=== PATIENT | female | born 1945 | race Caucasian/White ===

== ENCOUNTER 2017-09-12 20:14 | Inpatient (IN) | payer OTHER ==
[~2017-09-12] VITALS: Ht 160 cm; Wt 57.3 kg
[2017-09-12 21:40] VITALS: BP 188/78; PULSE 85; TEMP 36.7; O2SAT 98; BMI 22.8
[2017-09-12 21:45] VITALS: O2SAT 98
[2017-09-12] MEDS ORDERED: NITROGLYCERIN 0.4 MG SL PER TAB CHARGE SL PRN (22:15)
[2017-09-12] MEDS ORDERED: ONDANSETRON INJ 2 MG/ML 2 ML VIAL IV PRN (22:15)
[2017-09-12] MEDS ORDERED: MAGNESIUM HYDROXIDE SUSP 30 ML UDC PO PRN (22:15)
[2017-09-12] MEDS ORDERED: ACETAMINOPHEN 325 MG TAB PO PRN (22:15)
[2017-09-12] MEDS ORDERED: POLYETHYLENE (MIRALAX) 17 GM PACK PO PRN (22:15)
[2017-09-12] MEDS ORDERED: PHARMACIST DISCHARGE MED REC CONSULT PRN (22:15)
[2017-09-12] MEDS ORDERED: METOPROLOL TARTRATE 1 MG/ML VIAL IV PRN (22:30)
[2017-09-12] MEDS ORDERED: HydrALAZINE HCL 20 MG/ML VIAL IV. PRN (22:30)
[2017-09-12 22:35] VITALS: BP 147/74
[2017-09-12] MEDS ORDERED: CARBOHYDRATES FOR HYPOGLYCEMIA PO PRN (22:45)
[2017-09-12] MEDS ORDERED: GLUCOSE 40% GEL 15 GM TUBE PO PRN (22:45)
[2017-09-12] MEDS ORDERED: DEXTROSE 50% 50 ML SYR IV PRN (22:45)
[2017-09-12] MEDS ORDERED: GLUCAGON FOR INJ 1 MG VIAL IM PRN (22:45)
[2017-09-12] MEDS ORDERED: GLUCOSE 10 TABS/TUBE PO PRN (22:45)
[2017-09-12 22:48] LABS: BASO % 0.5 %; BASO ABS # 0.04 K/uL (0-0.2); EOS % 2.3 %; EOS ABS # 0.18 K/uL (0-0.5); HEMATOCRIT 43.6 % (37-47); HEMOGLOBIN 14.9 g/dL (12.0-16.0); IG# 0.03 K/uL (0.00-0.02); LYMPH % 42.8 %; LYMPH ABS # 3.31 K/uL (1.2-3.4); MEAN CELL VOLUME 88.1 fL (80-100); MEAN CORPUSCULAR HEMOGLOBIN 30.1 pg (25-34); MEAN CORPUSCULAR HGB CONC 34.2 g/dl (32-36); MEAN PLATELET VOLUME 9.8 fL (7.4-10.4); MONO % 7.1 %; MONO ABS # 0.55 K/uL (0.11-0.59); NEUT % 46.9 %; NEUT ABS # 3.62 K/uL (1.4-6.5); PLATELET COUNT 179 K/uL (130-400); RED CELL DISTRIBUTION WIDTH CV 12.9 % (11.5-14.5); RED CELL DISTRIBUTION WIDTH SD 41.2 fL (36.4-46.3); WHITE BLOOD COUNT 7.73 K/uL (4.8-10.8)
--- NOTE | 2017-09-12 23:00 | History and Physical ---
History & Physical Date & Time of Service: Sep 12, 2017 at 22:34 Chief Complaint: Right Sided Cva Primary Care Physician: No Doctor, Assigned History of Present Illness Source: patient The patient is a 72 year old female with a history of Diabetes, Hypertension, and Hyperlipidemia that presents as a direct admission from [facility] with a suspected stroke. The patient reports having facial numbness prior to going to sleep yesterday evening. She woke up this morning with left sided facial droop and tingling over her face and entire body, primarily in her extremities. The patient was taken to [facility] and CTA Head revealed decreased attenuation in the right occipital lobe. MRI brain subsequently showed acute ischemia in the medial aspect of the right occipital lobe extending into the thalamus. The patient was given Aspirin and transferred to [facility]. The patient at this time states her facial droop and numbness have improved, but she is still having difficulty walking. She is having continued numbness mainly on her left side that is different than early this morning when is was bilateral. She is also complaining of blurry vision. She had a left eye cataract surgery 3 weeks ago and has surgery for her right eye scheduled, but states this blurriness is different from her previous vision issues. The patient denies having slurred speech, memory problems, headache, difficulties breathing, palpitations, chest pain, or other acute complaints at this time. Past Medical/Surgical History Medical Problems: (1) CVA (cerebral vascular accident) Family History Diabetes mellitus MOTHER Hypertension FATHER MOTHER Stroke FATHER, Onset:50's - 60 Social History Smoking Status: Never Smoker Smokeless Tobacco Use: No Alcohol Use: socially Drug Use: none Marital Status: single Housing status: lives alone Allergies Coded Allergies: NSAIDs (Verified Allergy, Mild, RASH, 09/12/17) Review of Systems Constitutional: No fever, No chills, No fatigue Respiratory: No cough, No sputum, No shortness of breath, No dyspnea on exertion Cardiovascular: No chest pain, No edema, No palpitations Abdomen: + diarrhea, No pain, No nausea, No vomiting, No constipation Genitourinary - Female: No dysuria, No urinary frequency, No urinary urgency Neurologic: + weakness, + numbness/tingling, + balance problems, No memory loss Psychiatric: No depression symptoms, No anxiety Integumentary: No rash Physical Exam Vital Signs Date Time Temp Pulse Resp B/P (MAP) Pulse Ox O2 Delivery O2 Flow Rate FiO2 09/12/17 21:45 98 Room Air 09/12/17 21:40 36.7 85 20 188/78 98 Room Air General Appearance: WD/WN, no apparent distress Head: normocephalic, atraumatic Eyes: normal inspection, PERRL, EOMI, sclerae normal ENT: normal ENT inspection, TMs normal, pharynx normal Neck: supple, no carotid bruits Respiratory/Chest: chest non-tender, lungs clear, normal breath sounds Cardiovascular: regular rate, rhythm, no edema, no gallop Abdomen/GI: normal bowel sounds, non tender, soft Back: normal inspection, no CVA tenderness Extremities/Musculoskelatal: no calf tenderness, no pedal edema Neurologic/Psych: alert, normal mood/affect, oriented x 3, + abnormal camp tender II- XII (Very mild left sidede facial droop), + pertinent finding (Left hand overshooting on [id number] testing. Able to perform nhzk-zm-[id number] testing bilaterally but appears to have mild decrease of strength and co-ordination in the left leg. No visible deficit with arm raising in flexed position for 30s.) Diagnostics Laboratory Results Results Past 24 Hours Test 09/12/17 22:26 Range/Units Impression Assessment and Plan The patient is a 72 year old female with a history of Diabetes, Hypertension, and Hyperlipidemia that presents as a direct admission from [facility] with a suspected stroke CVA - CTA Head: Decreased attenuation in the right occipital lobe - MRI brain: Acute ischemia in the medial aspect of the right occipital lobe extending into the thalamus - CTA Head and Neck Ordered - Echo Ordered - Neurology Consult - Labs: CBC, BMP, HbA1c, Lipid Panel - Aspirin - Bedside Swallow Eval - PT/OT - Neuro checks q4h - Admit Telemetry Diabetes - BSH AC/HS with SSI Coverage - Hold Metformin and Invokana HTN - Resume home Lisinopril 20mg PO QAM - PRN Hydralazine and Lopressor IV for SBP > 180 (Goal overnight 160s-170s) DVT - SCDs Code Status - Full Resuscitation Attending addendum: I have physically seen this patient, have supervised the medical residents activities, and agree with the H&P unless as otherwise noted. Assessment and Plan: Right occipital/thalamic CVA-- Abnormal CT of head and MRI of brain performed at [facility]. The patient will be admitted to telemetry for serial cardiac enzymes, serial EKG's, cardiac rhythm monitoring and a 2-D echocardiogram with Dopplers. Aspirin 81 mg p.o. every morning. Order CTA of head neck. Inpatient stroke without TPA protocol. Consult PT/OT/speech therapy/social worker/neurology. Neurochecks every 4 hours per protocol. Blood pressure goals as noted. Check hemoglobin A1c and fasting lipid panel. Begin empiric atorvastatin 40 mg daily. Diabetes mellitus-- Hold metformin and Invokana. Place on Accu-Cheks before meals and at bedtime with NovoLog coverage for scale. Advanced Directives Existing Advance Directive: No Existing Living Will: No Existing Power of Superintendent Recreation: No Resuscitation Status VTE Prophylaxis Will order VTE Prophylaxis: Yes Resident Tracking Resident Involvement: Resident Care Provided Care Provided: Adult Hospital Medicine
[2017-09-12 23:05] LABS: CALCIUM 9.4 mg/dl (8.5-10.1); CREATININE 0.62 mg/dl (0.60-1.20); POTASSIUM 4.4 mmol/L (3.5-5.1)
[2017-09-12 23:45] VITALS: BP 155/75; PULSE 81; TEMP 36.8; O2SAT 97
[2017-09-13] MEDS ORDERED: GADAVIST IV PRN (00:30)
[2017-09-13 03:45] VITALS: BP 149/69; PULSE 73; TEMP 36.8; O2SAT 98
--- NOTE | 2017-09-13 07:21 | DIAGNOSTIC IMAGING REPORT ---
MRA NECK COMBO CLINICAL HISTORY: 72 years-old Female with Stroke. Acute strokelike symptoms with dizziness COMPARISON STUDY: MRA head of same day, MRI brain 09/12/2017. TECHNIQUE: Axial 3-D [id number] MR angiography of the neck is performed. Subsequently, following the IV administration of 5.8 mL Gadavist coronal MR angiogram of the neck was performed to corroborate the findings. 3-D reformats are created and assessed. All measurements were calculated based on NASCET criteria. FINDINGS: Normal three-vessel aortic arch. The innominate and imaged subclavian arteries appear patent. Bilateral common carotid arteries are widely patent. 40% luminal narrowing at the origin of the left internal carotid artery, likely secondary to underlying atherosclerotic vascular disease. The imaged bilateral internal carotid arteries are otherwise widely patent. The right vertebral artery is dominant. The bilateral vertebral arteries are widely patent. There is no aneurysm, dissection, high-grade stenosis or proximal branch occlusion. Incidental note is made of mildly heterogeneous appearance of the thyroid. IMPRESSION: 1. No aneurysm, dissection, high-grade stenosis or proximal branch occlusion identified. 2. 40% luminal narrowing at the origin of the right internal carotid artery is likely secondary to underlying atherosclerotic vascular disease. The above report was generated using voice recognition software. It may contain grammatical, syntax or spelling errors. Electronically signed by: Jhonatan Gannon M.D. 09/13/2017 7:20 AM Dictated Date/Time: 09/13/2017 7:10 AM
[2017-09-13 07:34] LABS: BASO % 0.5 %; BASO ABS # 0.04 K/uL (0-0.2); EOS % 3.2 %; EOS ABS # 0.24 K/uL (0-0.5); HEMATOCRIT 42.8 % (37-47); HEMOGLOBIN 14.9 g/dL (12.0-16.0); IG# 0.01 K/uL (0.00-0.02); LYMPH % 30.9 %; LYMPH ABS # 2.32 K/uL (1.2-3.4); MEAN CELL VOLUME 87.9 fL (80-100); MEAN CORPUSCULAR HEMOGLOBIN 30.6 pg (25-34); MEAN CORPUSCULAR HGB CONC 34.8 g/dl (32-36); MEAN PLATELET VOLUME 10.3 fL (7.4-10.4); MONO % 9.7 %; MONO ABS # 0.73 K/uL (0.11-0.59); NEUT % 55.6 %; NEUT ABS # 4.16 K/uL (1.4-6.5); PLATELET COUNT 179 K/uL (130-400); RED CELL DISTRIBUTION WIDTH SD 41.6 fL (36.4-46.3)
--- NOTE | 2017-09-13 07:36 | DIAGNOSTIC IMAGING REPORT ---
MR ANGIOGRAM OF THE BRAIN CLINICAL HISTORY: Right occipital and basal ganglia stroke. COMPARISON STUDY: CT of the brain dated 09/12/2017. MRI of the brain dated 09/12/2017.. TECHNIQUE: 3-D [id number] MR angiography of the intracranial circulation is performed. 3-D tumble views are created and assessed. IV contrast was not administered for this examination. FINDINGS: There is origin of the right posterior cerebral artery. The internal carotid arteries are widely patent bilaterally, as are the anterior and middle cerebral arteries. The vertebrobasilar system and left posterior cerebral artery are widely patent. There is complete occlusion of the right posterior cerebral artery proximally as seen on axial image #110. The right vertebral artery is dominant. There is no aneurysm or high-grade stenosis identified. IMPRESSION: 1. There is occlusion of the right posterior cerebral artery. 2. The remaining intracranial vessels are patent. 3. No aneurysm is identified. Electronically signed by: Von Layne M.D. 09/13/2017 7:35 AM Dictated Date/Time: 09/13/2017 7:03 AM
--- NOTE | 2017-09-13 07:52 | Family Medicine Progress Note ---
Progress Note Date of Service Sep 13, 2017. Medications Current Inpatient Medications Medications (Trade) Dose Ordered Sig/Vinny Route Start Time Stop Time Status Last Admin Dose Admin Atorvastatin Calcium (Lipitor Tab) 40 mg QAM PO 09/13/17 09:00 10/13/17 08:59 Aspirin (Ecotrin Tab) 81 mg QAM PO 09/13/17 09:00 10/13/17 08:59 Miscellaneous Information (Pharmacist Discharge Med Rec Consult) 1 ea UD PRN N/A 09/12/17 22:15 10/12/17 22:14 Acetaminophen (Tylenol Tab) 650 mg Q4H PRN PO 09/12/17 22:15 10/12/17 22:14 Magnesium Hydroxide (Milk Of Magnesia Susp) 30 ml Q12H PRN PO 09/12/17 22:15 10/12/17 22:14 Ondansetron HCl (Zofran Inj) 4 mg Q6H PRN IV 09/12/17 22:15 10/12/17 22:14 Nitroglycerin (Nitrostat Tab) 0.4 mg UD PRN SL 09/12/17 22:15 10/12/17 22:14 Polyethylene (Miralax Powder Packet) 17 gm DAILY PRN PO 09/12/17 22:15 10/12/17 22:14 Insulin Aspart (novoLOG ASPART) SLIDING SCALE G... ACHS SC 09/13/17 07:00 10/13/17 06:59 Lisinopril (Zestril Tab) 10 mg QAM PO 09/13/17 09:00 10/13/17 08:59 Metoprolol Tartrate (Lopressor Iv) 5 mg Q6 PRN IV 09/12/17 22:30 10/12/17 22:29 Glucose (Glucose 40% Gel) 15-30 GRAMS 15 GRAMS... UD PRN PO 09/12/17 22:45 10/12/17 22:44 Glucose (Glucose Chew Tab) 4-8 Tablets 4 Tabl... UD PRN PO 09/12/17 22:45 10/12/17 22:44 Dextrose (Dextrose 50% 50ML Syringe) 25-50ML 25ML FOR ... UD PRN IV 09/12/17 22:45 10/12/17 22:44 Glucagon (Glucagon Inj) 1 mg UD PRN IM 7/11/18 22:45 10/12/17 22:44 Carbohydrates (Carbohydrates For Hypoglycemia) 15-30 GRAMS 15 grams if BSG 54-69... UD PRN PO 09/12/17 22:45 10/12/17 22:44 Gadobutrol (Gadavist) 5.8 mmol UD PRN IV 09/13/17 00:30 09/17/17 00:29 Objective Vital Signs Date Time Temp Pulse Resp B/P (MAP) Pulse Ox O2 Delivery O2 Flow Rate FiO2 09/13/17 03:45 36.8 73 18 149/69 (95) 98 Room Air 09/12/17 23:59 Room Air 09/12/17 23:45 36.8 81 20 155/75 (101) 97 Room Air 09/12/17 22:35 147/74 (98) 09/12/17 21:45 98 Room Air 09/12/17 21:40 36.7 85 20 188/78 98 Room Air Assessment and Plan Resident Physician Supervision Note: I interviewed and examined the patient. Discussed with Dr. Hurley and agree with findings and plan as documented in the note. Any exceptions or clarifications are listed here: None Documented By: Semaj Felipe still feels dizzy diet reviewed - sounds to drink at least 2 regular pepsi a day, also eats a fair amount of processed carbs as part of her regular diet. 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
[2017-09-13 08:12] VITALS: BP 166/76; PULSE 83; TEMP 36.9; O2SAT 95
[2017-09-13 08:20] LABS: CALCIUM 9.5 mg/dl (8.5-10.1); CREATININE 0.66 mg/dl (0.60-1.20); POTASSIUM 4.1 mmol/L (3.5-5.1)
--- NOTE | 2017-09-13 08:22 | Clinical Documentation Query ---
KATIE Kang : CLINICAL DOCUMENTATION QUERY Patient is a 72 year old female admitted for evaluation and treatment of right occipital/thalamic CVA. Noted mild left sided facial droop, left hand apraxia, left leg weakness and decreased coordination. As appropriate, consider capture of this conglomerate of CVA related symptoms as suggested below. In your clinical opinion is this patient being managed for: ( X ) Left hemiparesis secondary to right occipital/thalamic CVA ( ) Not Agree ( ) Other explanation of clinical findings (No explanation is considered a No Response) ( ) Unable to determine ( ) Need to Discuss (Phone CDS or qliq) (No discussion is considered a No Response) The medical record reflects the following clinical findings, treatment, and risk factors. Clinical Indicators: As above Treatment: CTA Head, MRI Brain, Echocardiogram, Neurology consult, ASA, bedside swallow evaluation, PT/OT, neuro checks, telemetry Risk Factors: Age, diabetes, hypertension, hyperlipidemia Please clarify and document your clinical opinion in the progress notes and discharge summary. Terms such as "probable", "suspected", "likely", "questionable", "possible", or "still to be ruled out" are acceptable. IF IN AGREEMENT, YOU MUST DOCUMENT ABOVE DIAGNOSTIC STATEMENT IN DAILY PROGRESS NOTES AND DISCHARGE SUMMARY. This document is not part of the patient's record. Thank You, Kade Henley RN [phone]
[2017-09-13] MEDS ORDERED: ATORVASTATIN 40 MG TAB PO SCH (09:00)
[2017-09-13] MEDS: LISINOPRIL 10 MG TAB PO SCH (09:05)
[2017-09-13] MEDS: ASPIRIN 81 MG ECTAB PO SCH (09:05)
--- NOTE | 2017-09-13 09:05 | ECHOCARDIOGRAM REPORT ---
*NOTICE TO RECEIVING LIBERTARIAN AGENCY This information is strictly Confidential and protected under [place] law. [place] law prohibits you from making any further disclosure of this information unless further disclosure is expressly permitted by the written consent of the person to whom it pertains or is authorized by law. A general authorization for the release of medical or other information is not sufficient for this purpose. Hospital accepts no responsibility if the information is made available to any other person, INCLUDING THE PATIENT. Interpretation Summary * Name: WILL DAMIAN Study Date: 09/13/2017 06:40 AM BP: 149/69 mmHg * Patient Location: C.2T\S\S240\S\2 HR: 73 * : 1945 (M/d/yyy) Gender: Female Height: 63 in * Age: 72 yrs Ethnicity: DC Weight: 129 lb * Ordering Physician: Fermin Khan * Performed By: Saira Bruno RDCS * * Reason For Study: CVA * BSA: 1.6 m2 * -- Conclusions -- * Left ventricular systolic function is normal. * Grade I diastolic dysfunction, (abnormal relaxation pattern). * Injection of contrast documented no interatrial shunt. Procedure Details * A complete two-dimensional transthoracic echocardiogram was performed (2D, M-mode, Doppler and color flow Doppler). * A saline contrast injection was performed to assess for cardiac shunting. * The injection was performed through an intravenous line in the right arm. * The attending nurse who injected the saline contrast was LUCIEN MERLOS RN. * A total of 20 cc of agitated saline was given. Left Ventricle * The left ventricle is normal in size. * There is normal left ventricular wall thickness. * Ejection Fraction = 65-70%. * Left ventricular systolic function is normal. * Grade I diastolic dysfunction, (abnormal relaxation pattern). * The left ventricular wall motion is normal. Right Ventricle * The right ventricle is normal in size and function. * The right ventricular systolic function is normal as assessed by tricuspid annular plane systolic excursion (TAPSE) (normal >1.5 cm). Atria * The left atrial size is normal. * Right atrial size is normal. * Injection of contrast documented no interatrial shunt. Mitral Valve * The mitral valve anatomy is normal. * Significant mitral regurgitation is absent. Tricuspid Valve * The tricuspid valve is not well visualized, but is grossly normal. * Significant tricuspid regurgitation is absent. Aortic Valve * The aortic valve is normal in structure and function. * No hemodynamically significant valvular aortic stenosis. * There is no significant aortic regurgitation. Pulmonic Valve * The pulmonic valve is not well visualized. Pericardium/Pleural * There is no pericardial effusion. Great Vessels * Normal inferior vena cava diameter and respiratory variation suggests normal central venous pressure. MMode 2D Measurements and Calculations IVSd 1.5 cm IVSs 2.1 cm LVIDd 4.3 cm LVIDs 2.7 cm LVPWd 1.1 cm LVPWs 1.8 cm IVS/LVPW 1.4 FS 37.6 % EDV(Teich) 82.7 ml ESV(Teich) 26.4 ml EF(Teich) 68.0 % EDV(cubed) 79.1 ml ESV(cubed) 19.2 ml EF(cubed) 75.8 % % IVS thick 35.8 % % LVPW thick 68.2 % LV mass(C)d 210.5 grams LV mass(C)dI 131.1 grams/m\S\2 LV mass(C)s 223.4 grams LV mass(C)sI 139.2 grams/m\S\2 CO(Teich) 4.7 l/min CI(Teich) 2.9 l/min/m\S\2 SV(Teich) 56.3 ml SI(Teich) 35.1 ml/m\S\2 CO(cubed) 5.0 l/min CI(cubed) 3.1 l/min/m\S\2 SV(cubed) 59.9 ml SI(cubed) 37.3 ml/m\S\2 ACS 1.3 cm LA dimension 3.4 cm asc Aorta Diam 3.3 cm LVOT diam 1.7 cm LVOT area 2.3 cm\S\2 LVAd ap4 21.6 cm\S\2 LVLd ap4 6.2 cm EDV(MOD-sp4) 63.4 ml LVAs ap4 10.5 cm\S\2 LVLs ap4 5.0 cm ESV(MOD-sp4) 19.3 ml EF(MOD-sp4) 69.6 % LVAd ap2 19.0 cm\S\2 LVLd ap2 5.8 cm EDV(MOD-sp2) 53.5 ml LVAs ap2 9.2 cm\S\2 LVLs ap2 4.6 cm ESV(MOD-sp2) 16.8 ml EF(MOD-sp2) 68.6 % CO(MOD-sp4) 3.7 l/min CI(MOD-sp4) 2.3 l/min/m\S\2 SV(MOD-sp4) 44.1 ml SI(MOD-sp4) 27.5 ml/m\S\2 CO(MOD-sp2) 3.1 l/min CI(MOD-sp2) 1.9 l/min/m\S\2 SV(MOD-sp2) 36.7 ml SI(MOD-sp2) 22.9 ml/m\S\2 Doppler Measurements and Calculations MV E max daisha 83.4 cm/sec MV A max daisha 120.8 cm/sec MV E/A 0.69 MV dec time 0.23 sec Ao V2 max 142.5 cm/sec Ao max PG 8.1 mmHg Ao max PG (full) 4.6 mmHg TEODORO(V,A) 1.5 cm\S\2 TEODORO(V,D) 1.5 cm\S\2 LV V1 max PG 3.5 mmHg LV V1 max 94.1 cm/sec PA V2 max 79.5 cm/sec PA max PG 2.5 mmHg
[2017-09-13] MEDS: INSULIN ASPART 100 UNITS/ML 3 ML PEN SC SCH ×4 (09:12→22:00)
--- NOTE | 2017-09-13 10:14 | Neurology Consultation ---
Neurology Consultation Date of Consultation: Sep 13, 2017. Attending Physician: Semaj Felipe D.O. Primary Care Physician: Denilson Soto M.D. Reason for Consultation: Stroke History of Present Illness Source: patient, hospital records The patient is a 72-year-old female who was transferred from [facility] for further evaluation and management of stroke. She complains of vision loss, off to the left, which began 2 days ago. She also complains of associated numbness and tingling affecting the entire left side of her body. The symptoms have not significantly changed since their onset. She denies associated headache or vertigo. She does report a vague feeling of weakness affecting the left arm and leg as well. A CT of the head completed at [facility] suggested a right occipital stroke which was confirmed with a follow-up brain MRI. There is also evidence of an ischemic infarct within the right thalamus. The patient was given aspirin and subsequently transferred to [facility] in the [facility] for further evaluation and management. The patient continues to complain of left-sided numbness and difficulty seeing off to the left hand side. As above, his symptoms have not really changed. Past medical history is notable for diabetes mellitus, hypertension, and hyperlipidemia. Family History Family history notable for diabetes mellitus, hypertension, and stroke Social History Smokeless Tobacco Use: No Alcohol Use: socially Drug Use: none Marital Status: single Allergies Coded Allergies: NSAIDs (Verified Allergy, Mild, RASH, 09/12/17) Current Inpatient Medications Current Inpatient Medications Medications (Trade) Dose Ordered Sig/Vinny Route Start Time Stop Time Status Last Admin Dose Admin Atorvastatin Calcium (Lipitor Tab) 40 mg QAM PO 09/13/17 09:00 10/13/17 08:59 09/13/17 09:05 40 MG Aspirin (Ecotrin Tab) 81 mg QAM PO 09/13/17 09:00 10/13/17 08:59 09/13/17 09:05 81 MG Miscellaneous Information (Pharmacist Discharge Med Rec Consult) 1 ea UD PRN N/A 09/12/17 22:15 10/12/17 22:14 Acetaminophen (Tylenol Tab) 650 mg Q4H PRN PO 09/12/17 22:15 10/12/17 22:14 Magnesium Hydroxide (Milk Of Magnesia Susp) 30 ml Q12H PRN PO 09/12/17 22:15 10/12/17 22:14 Ondansetron HCl (Zofran Inj) 4 mg Q6H PRN IV 09/12/17 22:15 10/12/17 22:14 Nitroglycerin (Nitrostat Tab) 0.4 mg UD PRN SL 09/12/17 22:15 10/12/17 22:14 Polyethylene (Miralax Powder Packet) 17 gm DAILY PRN PO 09/12/17 22:15 10/12/17 22:14 Insulin Aspart (novoLOG ASPART) SLIDING SCALE G... ACHS SC 09/13/17 07:00 10/13/17 06:59 09/13/17 09:12 6 UNITS Lisinopril (Zestril Tab) 10 mg QAM PO 09/13/17 09:00 10/13/17 08:59 09/13/17 09:05 10 MG Metoprolol Tartrate (Lopressor Iv) 5 mg Q6 PRN IV 09/12/17 22:30 10/12/17 22:29 Glucose (Glucose 40% Gel) 15-30 GRAMS 15 GRAMS... UD PRN PO 09/12/17 22:45 10/12/17 22:44 Glucose (Glucose Chew Tab) 4-8 Tablets 4 Tabl... UD PRN PO 09/12/17 22:45 10/12/17 22:44 Dextrose (Dextrose 50% 50ML Syringe) 25-50ML 25ML FOR ... UD PRN IV 09/12/17 22:45 10/12/17 22:44 Glucagon (Glucagon Inj) 1 mg UD PRN IM 09/12/17 22:45 10/12/17 22:44 Carbohydrates (Carbohydrates For Hypoglycemia) 15-30 GRAMS 15 grams if BSG 54-69... UD PRN PO 09/12/17 22:45 10/12/17 22:44 Gadobutrol (Gadavist) 5.8 mmol UD PRN IV 09/13/17 00:30 09/17/17 00:29 Review of Systems Constitutional: No fever chills Eyes: As per history of present illness, patient also reports history of cataracts ENT: No vertigo or hearing loss Cardiovascular: No chest pain or palpitations Respiratory: No cough or shortness of breath Neurological as per history of present illness Psychiatric: No depression or anxiety Hematologic: No abnormal bruising bleeding or swollen glands A full 10 point review of systems was obtained from this patient with pertinent positives and negatives described in history of present illness and otherwise listed above. All remaining systems were reviewed and are negative. Physical Exam Vital Signs (Past 24 Hrs): Date Time Temp Pulse Resp B/P (MAP) Pulse Ox O2 Delivery O2 Flow Rate FiO2 09/13/17 08:12 36.9 83 19 166/76 (106) 95 Room Air 09/13/17 08:00 Room Air 09/13/17 03:45 36.8 73 18 149/69 (95) 98 Room Air 09/12/17 23:59 Room Air 09/12/17 23:45 36.8 81 20 155/75 (101) 97 Room Air 09/12/17 22:35 147/74 (98) 09/12/17 21:45 98 Room Air 09/12/17 21:40 36.7 85 20 188/78 98 Room Air The patient is a well-developed, well-nourished elderly female. She is lying comfortably in bed. Recent and remote memory intact. Attention and concentration normal. Patient exhibits a normal spontaneous speech pattern and age-appropriate fund of knowledge. There is a left-sided visual field deficit, homonymous hemianopsia, with confrontation testing. Visual acuity normal. Pupils equal round react to light and accommodation. Eye movements normal. Facial sensation intact. There is no facial weakness or droop. Hearing intact. Palate elevates to midline. Shoulder shrug intact. Tongue protrudes to midline. There is a relative deficit to all sensory modalities affecting the left side of the body. Deep tendon reflexes are intact and symmetrical. Plantar responses equivocal for the left, downgoing for the right. There is mild dysmetria of [id number] and heel to schulz on the left. No dysmetria with argzqs-[id number] or heel to schulz on the right. Ophthalmoscopic examination reveals normal-appearing optic discs and posterior segments. No papilledema or hemorrhages. Carotid pulses normal bilaterally, no bruits to auscultation. Gait and station not tested due to safety concerns. Muscle strength seems grossly normal for all 4 limbs. Muscle tone normal throughout. No atrophy. No abnormal movements observed. Laboratory Results Past 24 Hours: 09/13/17 07:01 Red Blood Count 4.87, Mean Corpuscular Volume 87.9, Mean Corpuscular Hemoglobin 30.6, Mean Corpuscular Hemoglobin Concent 34.8, Mean Platelet Volume 10.3, Neutrophils (%) (Auto) 55.6, Lymphocytes (%) (Auto) 30.9, Monocytes (%) (Auto) 9.7, Eosinophils (%) (Auto) 3.2, Basophils (%) (Auto) 0.5, Neutrophils # (Auto) 4.16, Lymphocytes # (Auto) 2.32, Monocytes # (Auto) 0.73, Eosinophils # (Auto) 0.24, Basophils # (Auto) 0.04 09/13/17 07:01 Test 09/12/17 22:26 09/13/17 07:01 09/13/17 07:06 Estimated Average Glucose 240 mg/dl Hemoglobin A1c 10.0 % (4.5-5.6) White Blood Count 7.50 K/uL (4.8-10.8) Red Blood Count 4.87 M/uL (4.2-5.4) Hemoglobin 14.9 g/dL (12.0-16.0) Hematocrit 42.8 % (37-47) Mean Corpuscular Volume 87.9 fL (80-100) Mean Corpuscular Hemoglobin 30.6 pg (25-34) Mean Corpuscular Hemoglobin Concent 34.8 g/dl (32-36) Platelet Count 179 K/uL (130-400) Mean Platelet Volume 10.3 fL (7.4-10.4) Neutrophils (%) (Auto) 55.6 % Lymphocytes (%) (Auto) 30.9 % Monocytes (%) (Auto) 9.7 % Eosinophils (%) (Auto) 3.2 % Basophils (%) (Auto) 0.5 % Neutrophils # (Auto) 4.16 K/uL (1.4-6.5) Lymphocytes # (Auto) 2.32 K/uL (1.2-3.4) Monocytes # (Auto) 0.73 K/uL (0.11-0.59) Eosinophils # (Auto) 0.24 K/uL (0-0.5) Basophils # (Auto) 0.04 K/uL (0-0.2) RDW Standard Deviation 41.6 fL (36.4-46.3) RDW Coefficient of Variation 13.0 % (11.5-14.5) Immature Granulocyte % (Auto) 0.1 % Immature Granulocyte # (Auto) 0.01 K/uL (0.00-0.02) Anion Gap 6.0 mmol/L (3-11) Est Creatinine Clear Calc Drug Dose 65.6 ml/min Estimated GFR () 103.7 Estimated GFR (Non- 89.5 BUN/Creatinine Ratio 14.2 (10-20) Calcium Level 9.5 mg/dl (8.5-10.1) Triglycerides Level 153 mg/dl (0-150) Cholesterol Level 201 mg/dl (0-200) HDL Cholesterol 43 mg/dl LDL Cholesterol, Calculated 127 mg/dl VLDL Cholesterol, Calculated 31 mg/dl Cholesterol/HDL Ratio 4.7 Bedside Glucose 266 mg/dl (70-90) Imaging An MRA of the head and neck were completed at [facility]. There is evidence of a focal occlusion of the right posterior cerebral artery. There is an incidental 40 percent stenosis of the right internal carotid artery. Other imaging as described in the history of present illness. Other data: A transthoracic echocardiogram was negative for cardioembolic source. 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 Clinically, this patient has a left homonymous hemianopsia and an associated relative left alden sensory deficit. Stroke etiology probably thrombotic ischemic. Cardioembolic source not completely excluded although patient does not have a known history of atrial fibrillation. Plan Agree with aspirin 81 milligrams per day. Continue medical management of hyperlipidemia, hypertension and diabetes mellitus. Patient will not be able to drive unless cleared by her adult ministries director. PT/OT Please contact me if I may be of further assistance.
[2017-09-13 10:57] VITALS: BP 128/74; PULSE 91; TEMP 36.8; O2SAT 98
[2017-09-13] MEDS ORDERED: LISI-863 PO (11:27)
[2017-09-13] MEDS ORDERED: GLC/500 PO (11:27)
[2017-09-13] MEDS ORDERED: NURSING VERBAL MED ORDER ONE (13:00)
--- NOTE | 2017-09-13 15:43 | Progress Note ---
Subjective Date of Service: Sep 13, 2017. Subjective Pt evaluation today including: conversation w/ patient, physical exam, chart review, lab review, review of studies, review of inpatient medication list feeling dizzy no other complaints - dizziness the same as before as well on review of diet - drinks probably at least 2 regular pepsi a day as well as a fair amount of other processed carbs Review of Systems all other ROS otherwise negative except for as above Objective Vital Signs Date Time Temp Pulse Resp B/P (MAP) Pulse Ox O2 Delivery O2 Flow Rate FiO2 09/13/17 12:00 Room Air 09/13/17 10:57 36.8 91 18 128/74 (92) 98 Room Air 09/13/17 08:12 36.9 83 19 166/76 (106) 95 Room Air 09/13/17 08:00 Room Air 09/13/17 03:45 36.8 73 18 149/69 (95) 98 Room Air 09/12/17 23:59 Room Air 09/12/17 23:45 36.8 81 20 155/75 (101) 97 Room Air 09/12/17 22:35 147/74 (98) 09/12/17 21:45 98 Room Air 09/12/17 21:40 36.7 85 20 188/78 98 Room Air Physical Exam General Appearance: no apparent distress Eyes: EOMI ENT: hearing grossly normal Neck: trachea midline Extremities: normal range of motion Neurologic/Psychiatric: + pertinent finding (deficits as described in dr burns' s exam, appearing unchanged at this time) Skin: normal color, warm/dry Laboratory Results Last 24 Hours Test 09/12/17 22:26 09/13/17 06:06 09/13/17 07:01 09/13/17 07:06 White Blood Count 7.73 K/uL 7.50 K/uL Red Blood Count 4.95 M/uL 4.87 M/uL Hemoglobin 14.9 g/dL 14.9 g/dL Hematocrit 43.6 % 42.8 % Mean Corpuscular Volume 88.1 fL 87.9 fL Mean Corpuscular Hemoglobin 30.1 pg 30.6 pg Mean Corpuscular Hemoglobin Concent 34.2 g/dl 34.8 g/dl Platelet Count 179 K/uL 179 K/uL Mean Platelet Volume 9.8 fL 10.3 fL Neutrophils (%) (Auto) 46.9 % 55.6 % Lymphocytes (%) (Auto) 42.8 % 30.9 % Monocytes (%) (Auto) 7.1 % 9.7 % Eosinophils (%) (Auto) 2.3 % 3.2 % Basophils (%) (Auto) 0.5 % 0.5 % Neutrophils # (Auto) 3.62 K/uL 4.16 K/uL Lymphocytes # (Auto) 3.31 K/uL 2.32 K/uL Monocytes # (Auto) 0.55 K/uL 0.73 K/uL Eosinophils # (Auto) 0.18 K/uL 0.24 K/uL Basophils # (Auto) 0.04 K/uL 0.04 K/uL RDW Standard Deviation 41.2 fL 41.6 fL RDW Coefficient of Variation 12.9 % 13.0 % Immature Granulocyte % (Auto) 0.4 % 0.1 % Immature Granulocyte # (Auto) 0.03 K/uL 0.01 K/uL Sodium Level 138 mmol/L 136 mmol/L Potassium Level 4.4 mmol/L 4.1 mmol/L Chloride Level 103 mmol/L 101 mmol/L Carbon Dioxide Level 30 mmol/L 30 mmol/L Anion Gap 6.0 mmol/L 6.0 mmol/L Blood Urea Nitrogen 9 mg/dl 9 mg/dl Creatinine 0.62 mg/dl 0.66 mg/dl Est Creatinine Clear Calc Drug Dose 69.8 ml/min 65.6 ml/min Estimated GFR () 105.9 103.7 Estimated GFR (Non- 91.4 89.5 BUN/Creatinine Ratio 14.0 14.2 Random Glucose 226 mg/dl 256 mg/dl Estimated Average Glucose 240 mg/dl Hemoglobin A1c 10.0 % Calcium Level 9.4 mg/dl 9.5 mg/dl Bedside Glucose 261 mg/dl 266 mg/dl Triglycerides Level 153 mg/dl Cholesterol Level 201 mg/dl HDL Cholesterol 43 mg/dl LDL Cholesterol, Calculated 127 mg/dl VLDL Cholesterol, Calculated 31 mg/dl Cholesterol/HDL Ratio 4.7 Test 09/13/17 12:03 Bedside Glucose 275 mg/dl Assessment and Plan CVA - intracranial thrombosis - from DM, HTN, hyperlipidemia -asa, secondary risk reduction, rehab once available uncontrolled DM -discussed critical need for lifestyle and discussed insulin resistance as a progressive disease -likely would have large impact on control and progression just from getting rid of pepsi -since no renal or oral intake limitations on meds - will work towards meds that will be easy for her at home -- for now metformin 1000mg bid; supplemental insulin - anticipate home back on previous byetta as well essential hypertension -reasonable control. continue lisinopril, follow hyperlipidemia -atorvastatin 80mg daily DVT proph -lovenox dispo - for rehab once available
[2017-09-13 16:30] VITALS: BMI 22.4
[2017-09-13 16:41] VITALS: Ht 160 cm; Wt 57.3 kg
[2017-09-13] MEDS: METFORMIN HCL 500 MG TAB PO SCH (17:12)
[2017-09-13 19:10] VITALS: BP 128/74; PULSE 91; TEMP 36.8; O2SAT 98
[2017-09-13 19:45] VITALS: BP 172/74; PULSE 80; TEMP 36.8; O2SAT 97
[2017-09-13 23:08] VITALS: BP 155/74; PULSE 72; TEMP 36.6; O2SAT 97
[2017-09-14 07:26] VITALS: BP 105/64; PULSE 84; TEMP 36.7; O2SAT 100
[2017-09-14 07:44] LABS: BASO % 0.5 %; BASO ABS # 0.04 K/uL (0-0.2); EOS % 3.6 %; HEMATOCRIT 42.7 % (37-47); HEMOGLOBIN 14.8 g/dL (12.0-16.0); IG# 0.04 K/uL (0.00-0.02); LYMPH % 34.5 %; LYMPH ABS # 2.88 K/uL (1.2-3.4); MEAN CORPUSCULAR HEMOGLOBIN 30.8 pg (25-34); MEAN CORPUSCULAR HGB CONC 34.7 g/dl (32-36); MEAN PLATELET VOLUME 10.1 fL (7.4-10.4); MONO % 9.5 %; MONO ABS # 0.79 K/uL (0.11-0.59); NEUT % 51.4 %; PLATELET COUNT 197 K/uL (130-400); RED CELL DISTRIBUTION WIDTH CV 13.1 % (11.5-14.5); RED CELL DISTRIBUTION WIDTH SD 42.6 fL (36.4-46.3); WHITE BLOOD COUNT 8.35 K/uL (4.8-10.8)
[2017-09-14] MEDS ORDERED: ENOXAPARIN 40 MG/0.4 ML SYR SQ SCH (08:00)
[2017-09-14] MEDS ORDERED: ATORVASTATIN 40 MG TAB PO SCH (08:00)
[2017-09-14 08:09] LABS: CALCIUM 9.3 mg/dl (8.5-10.1); CREATININE 0.77 mg/dl (0.60-1.20); POTASSIUM 4.2 mmol/L (3.5-5.1)
[2017-09-14] MEDS: METFORMIN HCL 500 MG TAB PO SCH ×2 (08:30→17:02)
[2017-09-14] MEDS: ASPIRIN 81 MG ECTAB PO SCH (08:31)
[2017-09-14] MEDS: LISINOPRIL 10 MG TAB PO SCH (10:01)
[2017-09-14] MEDS: INSULIN ASPART 100 UNITS/ML 3 ML PEN SC SCH ×3 (10:05→17:02)
[2017-09-14] MEDS ORDERED: LPT40 PO (13:41)
[2017-09-14] MEDS ORDERED: LSN10 PO (13:41)
[2017-09-14] MEDS ORDERED: GLC500 PO (13:41)
[2017-09-14] MEDS ORDERED: EXEN1INJ4 SQ (13:41)
[2017-09-14] MEDS ORDERED: ASPI-461 PO (13:41)
--- NOTE | 2017-09-14 13:44 | Discharge Instructions ---
Discharge Instructions Date of Service Sep 14, 2017. Admission Reason for Admission: Right Sided Cva Discharge Discharge Diagnosis / Problem: stroke (intracranial atherosclerosis) Discharge Goals Goal(s): Diagnostic testing, Therapeutic intervention Activity Recommendations Activity Level: Assistance Required Therapies: Physical Therapy, Occupational Therapy . Additional Information Patient informed of condition: Yes Advance Directives: No DNR: No Level of Care: Acute Rehab Communicable Disease: No Prognosis: Stable Pérez Catheter: No Current Hospital Diet Patient's current hospital diet: Diabetes Type 2 Diet, AHA Diet (Heart Healthy) Discharge Diet Recommended Diet: AHA Diet (Heart Healthy), Diabetes Type 2 Diet Pending Studies Studies pending at discharge: no Laboratory Results Hemoglobin A1c Test 09/12/17 22:26 Range/Units Estimated Average Glucose 240 mg/dl Hemoglobin A1c 10.0 H 4.5-5.6 % Lipid Panel Test 09/13/17 07:01 Range/Units Triglycerides Level 153 H 0-150 mg/dl Cholesterol Level 201 H 0-200 mg/dl HDL Cholesterol 43 mg/dl Cholesterol/HDL Ratio 4.7 LDL Cholesterol, Calculated 127 mg/dl Medical Emergencies . Who to Call and When: Medical Emergencies: If at any time you feel your situation is an emergency, please call 911 immediately. . Non-Emergent Contact Non-Emergency issues call your: Primary Care Provider, Neurologist . . "Provider Documentation" section prepared by Semaj Felipe. . Core Measure Problem Core Measures: Stroke Stroke Core Measures Reason no t-PA for Stroke: Treatment not indicated Reason no antithrom by day 2: Treatment provided - N/A Reason no antithrom at D/C: Treatment provided - N/A Reason no statin at D/C: Treatment provided - N/A Reason no anticoag w/a fib: Treatment not indicated
--- NOTE | 2017-09-14 13:56 | Discharge Instructions ---
Discharge Instructions Date of Service Sep 14, 2017. Admission Reason for Admission: Right Sided Cva Discharge Discharge Diagnosis / Problem: stroke Discharge Goals Goal(s): Diagnostic testing, Therapeutic intervention Activity Recommendations Activity Limitations: resume your previous activity . Instructions / Follow-Up Instructions / Follow-Up stroke -appears to have been intracranial atherosclerosis from uncontrolled diabetes, high cholesterol and high blood pressure -take aspirin 81mg daily to prevent new strokes, and more importantly, see below in regards to getting the reasons the arteries clogged under control uncontrolled type 2 diabetes -as we discussed, "high sugars clog arteries" -- the higher your sugar runs, and the longer it runs high, the more you damage blood vessels you can't get back -the single biggest thing driving type 2 diabetes is lifestyle - when you eat/ drink things that are high in sugar/starch, it spikes a sugar (which clogs arteries) and then when you spike a sugar you also spike a high level of insulin - which makes your muscles more "addicted" (resistant) to insulin, also making your overall diabetes worse -while any starchy or sugary food can spike sugars in this way, the single biggest "offender" for you is the pepsi -- if we can have you simply get away from that entirely, you're likely to see really significant improvements in your sugars quickly. ongoing lifestyle changes (not only getting rid of the pepsi, but also starting to get away from so much starch/bread/potato/etc) will really make the choices of medication less important as you start to fix the "root cause" of the diabetes high cholesterol -while your "raw" numbers aren't terrible, in the context of diabetes and high blood pressure (which also can clog arteries) and in the context of having just had a stroke, we need to have your cholesterol numbers much better -we've started atorvastatin 80mg daily - this should get your numbers where they need to be, and just as importantly, at the high doses, atorvastatin helps to stabilize the plaque that's already in arteries and makes future strokes ( and heart attacks) far less likely -typically atorvastatin is really well tolerated. rarely people can get muscle aches - so if you "feel like you have the flu but you don't have the flu" or suddenly have lots of bad leg cramps -- the medication could be the culprit. overall this is something we actually don't see that often but we need to watch for; also they'll follow liver enzymes in the office periodically, although we really don't see much of any real trouble from this high blood pressure -we'll be continuing you on the lisinopril (right now at a lower dose, but they' ll work on the dosing as your blood pressures need) -ideally to prevent future strokes we'd want to get you as low as 120/80 slowly over the next several weeks, although not everyone can tolerate being treated to that low - in which case we'd want to get you as close as you're able to tolerate Risk Factors for Stroke: You can reduce your chances of stroke by working with your medical provider to adopt a healthy lifestyle. Some specific ways to lower your chance of stroke are: * If you are a smoker, now is the time to stop smoking cigarettes * If you are diabetic, improve the control of your blood sugars * Avoid excessive amounts of alcohol * Control high blood pressure * Lose weight if you are overweight * Be sure to lead an active lifestyle * Eat a healthy diet low in salt, cholesterol and fat You should know about other risk factors for stroke that you are unable to control. These include: * Age 55 years or older * Male gender * Certain racial groups: , or / * Family History of Stroke, Mini stroke or Heart Attack * Sickle Cell Disease Follow Up: It is important for you to keep your follow up appointments with your medical provider. Current Hospital Diet Patient's current hospital diet: Diabetes Type 2 Diet, AHA Diet (Heart Healthy) Discharge Diet Recommended Diet: AHA Diet (Heart Healthy), Diabetes Type 2 Diet Pending Studies Studies pending at discharge: no Laboratory Results Hemoglobin A1c Test 09/12/17 22:26 Range/Units Estimated Average Glucose 240 mg/dl Hemoglobin A1c 10.0 H 4.5-5.6 % Lipid Panel Test 09/13/17 07:01 Range/Units Triglycerides Level 153 H 0-150 mg/dl Cholesterol Level 201 H 0-200 mg/dl HDL Cholesterol 43 mg/dl Cholesterol/HDL Ratio 4.7 LDL Cholesterol, Calculated 127 mg/dl Medical Emergencies . Who to Call and When: Medical Emergencies: Call 911 immediately if you experience any of the following warning signs and symptoms of Stroke: * Sudden numbness or weakness of the face, arm or leg, especially on one side of the body * Sudden confusion, trouble speaking or understanding * Sudden trouble seeing in one or both eyes * Sudden trouble walking, dizziness, loss of balance or coordination * Sudden severe headache with no cause Do not delay calling 911 if you experience any warning signs or symptoms of a stroke. Delay in seeking medical attention may affect what treatments can be given to you. . Non-Emergent Contact Non-Emergency issues call your: Primary Care Provider, Neurologist . . "Provider Documentation" section prepared by Semaj Felipe. . Stroke Core Measures Reason no t-PA for Stroke: Treatment not indicated Reason no antithrom by day 2: Treatment provided - N/A Reason no antithrom at D/C: Treatment provided - N/A Reason no statin at D/C: Treatment provided - N/A Reason no anticoag w/a fib: Treatment not indicated
[2017-09-14 15:00] VITALS: BP 135/72; PULSE 91; TEMP 37; O2SAT 95
[2017-09-14 16:56] VITALS: BP 135/72; PULSE 91; TEMP 37; O2SAT 95
--- NOTE | 2017-09-14 17:39 | Discharge Summary ---
Discharge Summary Date of Service Sep 14, 2017. Discharge Summary Admission Date: Sep 12, 2017 at 21:36 Discharge Date: Sep 14, 2017 Discharge Disposition: Rehab Principal Diagnosis: left sided neurologic deficits secondary to right occipital CVA Procedures: MR ANGIOGRAM OF THE BRAIN CLINICAL HISTORY: Right occipital and basal ganglia stroke. COMPARISON STUDY: CT of the brain dated 09/12/2017. MRI of the brain dated 09/12/2017.. TECHNIQUE: 3-D [id number] MR angiography of the intracranial circulation is performed. 3-D tumble views are created and assessed. IV contrast was not administered for this examination. FINDINGS: There is origin of the right posterior cerebral artery. The internal carotid arteries are widely patent bilaterally, as are the anterior and middle cerebral arteries. The vertebrobasilar system and left posterior cerebral artery are widely patent. There is complete occlusion of the right posterior cerebral artery proximally as seen on axial image #110. The right vertebral artery is dominant. There is no aneurysm or high-grade stenosis identified. IMPRESSION: 1. There is occlusion of the right posterior cerebral artery. 2. The remaining intracranial vessels are patent. 3. No aneurysm is identified. Electronically signed by: Von Layne M.D. 09/13/2017 7:35 AM Dictated Date/Time: 09/13/2017 7:03 AM MRA NECK COMBO CLINICAL HISTORY: 72 years-old Female with Stroke. Acute strokelike symptoms with dizziness COMPARISON STUDY: MRA head of same day, MRI brain 09/12/2017. TECHNIQUE: Axial 3-D [id number] MR angiography of the neck is performed. Subsequently, following the IV administration of 5.8 mL Gadavist coronal MR angiogram of the neck was performed to corroborate the findings. 3-D reformats are created and assessed. All measurements were calculated based on NASCET criteria. FINDINGS: Normal three-vessel aortic arch. The innominate and imaged subclavian arteries appear patent. Bilateral common carotid arteries are widely patent. 40% luminal narrowing at the origin of the left internal carotid artery, likely secondary to underlying atherosclerotic vascular disease. The imaged bilateral internal carotid arteries are otherwise widely patent. The right vertebral artery is dominant. The bilateral vertebral arteries are widely patent. There is no aneurysm, dissection, high-grade stenosis or proximal branch occlusion. Incidental note is made of mildly heterogeneous appearance of the thyroid. IMPRESSION: 1. No aneurysm, dissection, high-grade stenosis or proximal branch occlusion identified. 2. 40% luminal narrowing at the origin of the right internal carotid artery is likely secondary to underlying atherosclerotic vascular disease. The above report was generated using voice recognition software. It may contain grammatical, syntax or spelling errors. Electronically signed by: Jhonatan Gannon M.D. 09/13/2017 7:20 AM Dictated Date/Time: 09/13/2017 7:10 AM echo: Interpretation Summary * Name: WILL DAMIAN Study Date: 09/13/2017 06:40 AM BP: 149/69 mmHg * Patient Location: 2\S\S240\S\2 HR: 73 * : 1945 (M/d/yyyy) Gender: Female Height: 63 in * Age: 72 yrs Ethnicity: DC Weight: 129 lb * Ordering Physician: Fermin Khan * Performed By: Saira Bruno RDCS * * Reason For Study: CVA * BSA: 1.6 m2 * -- Conclusions -- * Left ventricular systolic function is normal. * Grade I diastolic dysfunction, (abnormal relaxation pattern). * Injection of contrast documented no interatrial shunt. Procedure Details * A complete two-dimensional transthoracic echocardiogram was performed (2D, M-mode, Doppler and color flow Doppler). * A saline contrast injection was performed to assess for cardiac shunting. * The injection was performed through an intravenous line in the right arm. * The attending nurse who injected the saline contrast was LUCIEN MERLOS RN. * A total of 20 cc of agitated saline was given. Left Ventricle * The left ventricle is normal in size. * There is normal left ventricular wall thickness. * Ejection Fraction = 65-70%. * Left ventricular systolic function is normal. * Grade I diastolic dysfunction, (abnormal relaxation pattern). * The left ventricular wall motion is normal. Right Ventricle * The right ventricle is normal in size and function. * The right ventricular systolic function is normal as assessed by tricuspid annular plane systolic excursion (TAPSE) (normal >1.5 cm). Atria * The left atrial size is normal. * Right atrial size is normal. * Injection of contrast documented no interatrial shunt. Mitral Valve * The mitral valve anatomy is normal. * Significant mitral regurgitation is absent. Tricuspid Valve * The tricuspid valve is not well visualized, but is grossly normal. * Significant tricuspid regurgitation is absent. Aortic Valve * The aortic valve is normal in structure and function. * No hemodynamically significant valvular aortic stenosis. * There is no significant aortic regurgitation. Pulmonic Valve * The pulmonic valve is not well visualized. Pericardium/Pleural * There is no pericardial effusion. Great Vessels * Normal inferior vena cava diameter and respiratory variation suggests normal central venous pressure. Consultations: neuro: Imaging An MRA of the head and neck were completed at [facility]. There is evidence of a focal occlusion of the right posterior cerebral artery. There is an incidental 40 percent stenosis of the right internal carotid artery. Other imaging as described in the history of present illness. Other data: A transthoracic echocardiogram was negative for cardioembolic source. 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 Clinically, this patient has a left homonymous hemianopsia and an associated relative left alden sensory deficit. Stroke etiology probably thrombotic ischemic. Cardioembolic source not completely excluded although patient does not have a known history of atrial fibrillation. Plan Agree with aspirin 81 milligrams per day. Continue medical management of hyperlipidemia, hypertension and diabetes mellitus. Patient will not be able to drive unless cleared by her wedger and gluer. PT/OT Please contact me if I may be of further assistance. <Electronically signed by Kade Jansen MD> Medication Reconciliation New Medications: Exenatide (Byetta) 5 Mcg/0.02 Ml Inj 5 MCG SQ BID, #1 SYR Aspirin (Aspirin) 81 Mg Tab 81 MG PO QAM, #30 TAB Atorvastatin (Lipitor) 40 Mg Tab 80 MG PO QAM, #30 TAB Lisinopril (Zestril) 10 Mg Tab 10 MG PO QAM, #30 TAB Metformin HCl (Metformin HCl) 500 Mg Tab 1000 MG PO BIDM, #30 TAB Discontinued Medications: Lisinopril (Zestril) 30 Mg Tab 30 MG PO DAILY, TAB Metformin Hcl (Glucophage) 500 Mg Tab 500 MG PO BID, TAB Discharge Exam Physical Exam: General Appearance: no apparent distress Eyes: EOMI ENT: hearing grossly normal Neck: trachea midline Respiratory/Chest: no respiratory distress, no accessory muscle use Extremities: normal inspection Neurologic/Psychiatric: brush polisher II-XII nml as tested (sl facial droop), alert, normal mood/affect Hospital Course CVA - intracranial thrombosis - from DM, HTN, hyperlipidemia -asa, secondary risk reduction, rehab once available uncontrolled DM -discussed critical need for lifestyle and discussed insulin resistance as a progressive disease -likely would have large impact on control and progression just from getting rid of pepsi -since no renal or oral intake limitations on meds - will work towards meds that will be easy for her at home -- for now metformin 1000mg bid; resume byetta essential hypertension -reasonable control. continue lisinopril, follow hyperlipidemia -atorvastatin 80mg daily, f/u labs DVT proph -lovenox utilized while here dispo - for rehab, stable to go Total Time Spent: Less than 30 minutes This includes examination of the patient, discharge planning, medication reconciliation, and communication with other providers. Discharge Instructions Please refer to the electronic Patient Visit Report (Discharge Instructions) for additional information.
== END 2017-09-14 18:18 | DRG 66 ==
LOC: C.2T 21:36 → ENRESERV 09-13 18:56 → C.MS4W 09-13 19:33
PROVIDERS: ADMIT Hospitalist; ATTEND Family Medicine
DX: I63.8 Other cerebral infarction (principal); H53.462 Homonymous bilateral field defects, left side; R20.2 Paresthesia of skin; R20.0 Anesthesia of skin; R29.810 Facial weakness; I10 Essential (primary) hypertension; E11.65 Type 2 diabetes mellitus with hyperglycemia; E78.5 Hyperlipidemia, unspecified